=== PATIENT | male | born 1990 | race African-American/Black ===

== ENCOUNTER 2025-02-20 16:23 | Emergency (ER) | payer OTHER, SELFPAY ==
[2025-02-20] MEDS: SAPHRIS 5 MG SL (16:28)
--- NOTE | 2025-02-20 16:39 | ED.GENMED ---
History of Present Illness
General
Chief Complaint: Crisis Evaluation
Source: patient
Exam Limitations: other (Mentally ill)
Time Seen by Provider: 02/20/25 16:23
Nursing documentation reviewed up to this point in time: agreed with
History of Present Illness
History of Present Illness:
35-year-old male, brought in by police, apparently stole some orange juice found rambling, not making any sense preoccupied with islam they called crisis instructed to bring him in apparently, here suspicious, appears to be responding to internal
stimuli, is talking about islam not making a lot of sense, no overt signs of trauma, did tell me that he is from [facility] registration tells me that he at one time lived in [facility], and that he may
live in some housing affiliated with [facility] this is all not confirmed
Past History
Past History
ED Past Medical History: Other
ED Past Surgical History: Other
Social History
Tobacco: Other
Alcohol: Other
Drug: Other
Personal: Other
Living: homeless
Employment: Other
Family History
Family History: Unable to obtain
Review of Systems
Review of Systems
Unable to obtain full review of systems at this time due to: other (Nonverbal)
All Other Systems: Not applicable
Phy Exam
Physical Exam
Physical Exam:
Physical Exam
General: Large statured -Lao male
Neck: No jaundice
Lungs: no acute respiratory distress.
Neuro: Ambulates without difficulty disoriented mumbling speaking islam
Skin: no rash
Psychiatric: Appears to be responding to internal stimuli
Extremities: no edema.
Course
Orders/Labs/Results
Orders:
Orders
02/20/25 16:24
Asenapine Sublingual [Saphris] 5 mg SL NOW STA
02/20/25 17:21
Haloperidol Lactate [Haldol] 10 mg IM NOW STA
02/20/25 17:22
Urine Drug Abuse Screen Urgent
Lorazepam [Ativan] 2 mg IM NOW STA
02/20/25 18:03
Lorazepam [Ativan] 2 mg PO NOW STA
02/20/25 18:08
Acetaminophen Urgent
Alcohol Urgent
Complete Blood Count/No Diff Urgent
Comprehensive Metabolic Panel Urgent
Salicylate Urgent
Abnormal Lab Results
02/20/25
18:08
MCV 77.9 L fL
(80.0-94.0)
MCH 25.9 L pg
(27.0-31.0)
MPV 11.8 H fL
(7.4-10.4)
Glucose 138 H mg/dl
(70-99)
AST 159 H U/L
(17-59)
Salicylates < 1.0 L mg/dl
(2.0-20.0)
Acetaminophen < 10 L ug/ml
(10-30)
02/20/25 18:08
02/20/25 18:08
Vital Signs
Initial and Last Documented VS:
Initial Vital Signs
Pulse Pulse Ox
110 98
02/20/25 16:55 02/20/25 16:55
Last Documented Vital Signs
Temp Pulse BP Pulse Ox
98.0 F 87 157/98 97
02/20/25 18:26 02/20/25 18:26 02/20/25 18:26 02/20/25 18:26
*Critical Care Note
Total Time (30-74mins, 75-104mins- exclusive of procedures): Not Applicable
Update Note
Update Note:
5:30 PM, patient pacing in the room hitting the nunez speaking incoherently 302's been completed by police I will upheld at provide sedation antipsychotics
ED Attending Note
-
Portions of this chart may have been created with voice recognition software.� Occasional wrong word or��sound alike� substitutions may have occurred due to the inherent limitations of voice recognition software.
Discharge Plan
Departure
Patient Disposition: Psych Facility
Date of Disposition: 02/20/25
Time of Disposition: 17:37
Patient with high blood pressure during this ER visit?: No
Condition: Good
Covid-19: Not Applicable
Discharge Problem:
Acute psychosis
Referrals:
NONE,* [Family Provider] -
Interventions
Interventions:
*Risk Screen - Suicide Last Done: 02/20/25 16:55
*General Assessment Last Done: 02/20/25 16:55
*Neglect/Abuse Screening Last Done: 02/20/25 16:55
*ED- Fall Risk Assessment Last Done: 02/20/25 17:00
*ED COVID-19 Vaccine History Last Done: 02/20/25 17:00
ED-Psychological Assessment Last Done: 02/20/25 19:41
Discharge Date and Time
Print Language: CROATIAN
[2025-02-20] MEDS: ATIVAN 2 MG PO (18:15)
[2025-02-20 18:22] LABS: Hematocrit 40.3 % (39.0-52.0); Hemoglobin 13.4 g/dL (13.0-18.0); Mean Corp Hgb Conc. 33.3 g/dL (33.0-37.0); Mean Corpuscular Hgb 25.9 pg (27.0-31.0); Mean Corpuscular Volume 77.9 fL (80.0-94.0); Mean Platelet Volume 11.8 fL (7.4-10.4); Platelet Count 178 10^3/uL (130-400); Red Blood Cell Count 5.17 10^6/uL (4.70-6.10); Red Cell Dist. Width 14.4 % (11.5-14.5); White Blood Cell Count 8.5 10^3/uL (4.8-10.8)
[2025-02-20 18:26] VITALS: BP 157/98
[2025-02-20 18:35] LABS: ALT (SGPT) 36 U/L (0-50); AST (SGOT) 159 U/L (17-59); Acetaminophen < 10 ug/ml (10-30); Albumin 4.2 g/dl (3.5-5.0); Alkaline Phosphatase 92 U/L (38-126); Blood Urea Nitrogen 12 mg/dl (9-20); Calcium 9.4 mg/dl (8.4-10.2); Carbon Dioxide 23 mmol/L (22-30); Chloride 106 mmol/L (98-107); Glucose 138 mg/dl (70-99); Potassium 3.8 mmol/L (3.5-5.1); Salicylate < 1.0 mg/dl (2.0-20.0); Sodium 140 mmol/L (135-145); Total Bilirubin 0.6 mg/dl (0.2-1.3); Total Protein 7.8 g/dl (6.3-8.2); eGFR > 60.00
[2025-02-20 18:36] LABS: Alcohol None Detected
[2025-02-21 08:00] VITALS: BP 126/87; BMI 26.6
--- NOTE | 2025-02-21 09:17 | ED.CRISIS ---
ED Crisis Note
ED Crisis Note
Subjective:
No new issues
Assessment/Plan:
I spoke to crisis at 9:18 AM. Plan is for transfer to [facility] at around 1:30 PM today. He did require antipsychotics upon arrival last night however more recently has been calm and cooperative.
[2025-02-21] MEDS: SAPHRIS 5 MG SL (10:40)
[2025-02-21] MEDS: ATIVAN 2 MG PO (11:24)
== END 2025-02-21 13:50 ==
LOC: EMR 16:23
PROVIDERS: EMERGENCY PHYSICIAN Emergency Medicine
DX: F23 Brief psychotic disorder (principal); F12.90 Cannabis use, unspecified, uncomplicated; Z59.00 Homelessness unspecified
CPT/HCPCS: 99285; 80053; 80143; 80179; 82077; 85027